=== PATIENT | male | born 1935 | race Caucasian/White ===

== ENCOUNTER 2020-10-17 08:42 | Day surgery (SDC) | payer MEDICARE ==
[2020-10-17] VITALS (9 sets, daily range): BP systolic 113–128; BP diastolic 70–83
[~2020-10-17] VITALS: Ht 170.2 cm; Wt 63.2 kg
[~2020-10-17 08:42] MED LIST: GABA100C PO; LUTE6CAP PO; MULT-955 PO
[2020-10-17] MEDS ORDERED: fentaNYL/PF 50MCG/1 ML 2ML syringe ONE ×2 (09:21→11:49)
[2020-10-17] MEDS ORDERED: MIDAZolam 5mg/5ml vial ONE (09:22)
[2020-10-17] MEDS ORDERED: LIDOcaine Viscous 15ml cup ONE (09:22)
[2020-10-17] MEDS ORDERED: glucagon, human recombinant 1mg kit ONE (09:22)
[2020-10-17] MEDS ORDERED: iohexol 300 MG/1 ML 50ml polymer ONE (09:22)
[2020-10-17] MEDS ORDERED: FINA5TAB11 PO (10:50)
[2020-10-17] MEDS ORDERED: levoFLOXACIN-Levaquin 500mg/D5 100 ML IV ONE (11:11)
== END 2020-10-17 13:35 | disposition home or self-care (01) ==
LOC: GI LAB 08:42
PROVIDERS: ATTEND Internal Medicine Gastroenterology
DX: C24.0 Malignant neoplasm of extrahepatic bile duct (principal); K83.1 Obstruction of bile duct; R17 Unspecified jaundice; C79.9 Secondary malignant neoplasm of unspecified site; Z87.891 Personal history of nicotine dependence
CPT/HCPCS: 43262; 43274; C1769; C2617; J1610; J1956; J2250; J3010; J7040; Q9967; 88108; 88305; 99152; 99153; A4620

== ENCOUNTER 2020-12-27 07:28 | Day surgery (SDC) | payer MEDICARE ==
[~2020-12-27] VITALS: Ht 170.2 cm; Wt 60.5 kg
[2020-12-27] VITALS (8 sets, daily range): BP systolic 108–122; BP diastolic 65–70
[~2020-12-27 07:28] MED LIST changes: +FINA5TAB11 PO
[2020-12-27] MEDS ORDERED: fentaNYL/PF 50MCG/1 ML 2ML syringe ONE (07:36)
[2020-12-27] MEDS ORDERED: MIDAZolam 1 MG/ML 5ML VIAL ONE (07:37)
[2020-12-27] MEDS ORDERED: LIDOcaine Viscous 15ml cup ONE (07:37)
[2020-12-27] MEDS ORDERED: glucagon, human recombinant 1mg kit ONE (07:37)
[2020-12-27] MEDS ORDERED: iohexol 300 MG/1 ML 50ml polymer ONE (07:37)
[2020-12-27] MEDS ORDERED: AMA1T PO ×2 (07:44→07:46)
[2020-12-27] MEDS ORDERED: PRED5DRO23 LEFTEYE (07:48)
[2020-12-27] MEDS ORDERED: ONDA4TAB6 PO ×2 (07:49→07:50)
[2020-12-27] MEDS ORDERED: PROC-8 PO (07:50)
[2020-12-27] MEDS ORDERED: ACET-1008 PO (07:51)
[2020-12-27] MEDS ORDERED: FLO0.4C PO (07:52)
[2020-12-27] MEDS ORDERED: PACL100V IV (07:55)
[2020-12-27] MEDS ORDERED: [UNRECOGNIZED DRUG - CODE] IV (07:57)
[2020-12-27] MEDS ORDERED: levoFLOXACIN-Levaquin 500mg/D5 100 ML IV ONE (08:11)
== END 2020-12-27 10:10 | disposition home or self-care (01) ==
LOC: GI LAB 07:28
PROVIDERS: ATTEND Internal Medicine Gastroenterology
DX: C25.0 Malignant neoplasm of head of pancreas (principal); C17.0 Malignant neoplasm of duodenum; K83.1 Obstruction of bile duct; K86.1 Other chronic pancreatitis; Z46.59 Encounter for fitting and adjustment of other gastrointestinal appliance and device
CPT/HCPCS: 43239; 43276; 74328; C1769; C1773; J1610; J1956; J2250; J3010; J7040; Q9967; 88305; 99152; 99153; A4620